=== PATIENT | female | born 1985 | race Caucasian/White ===

== ENCOUNTER 2018-11-05 17:02 | Emergency (ER) | payer MEDICAID ==
[~2018-11-05] VITALS: Ht 162.6 cm; Wt 89.4 kg
[~2018-11-05 17:02] MED LIST: AZIT500 PO; Amoxicillin500 MG PO; CYCL10 PO; Cyclobenzaprine5 MG PO; ERYT.5TO OD; HYDACE5 PO; IBUP600 PO; IBUP800 PO; MEDR150I IM; NAPR500 PO; NITR100CA PO; Naprosyn500 MG PO; Norco 5-325 Ta1 EACH PO; ONDA4ODT MM; ONDA8ODT MM; OXYACE5T PO; PENVK500 PO; PRENATAL VITAM1 EACH PO; PRENATAL VITS; PROACE100 PO; PROCODE120 PO; PROM25 PO; RXCODACET PO
[2018-11-05] MEDS ORDERED: Augmentin 875-1 EACH PO (20:29)
[2018-11-07 05:07] LABS: HIV SCREEN 4TH GENERATION WRFX Non Reactive (Non Reactive)
[2018-11-07 10:07] LABS: HCV ANTIBODY <0.1 (0.0-0.9); HEP B CORE AB, TOT Negative (Negative)
== END 2018-11-05 20:47 | disposition home or self-care (01) ==
LOC: ER 17:02
PROVIDERS: Physician Assistant
DX: S06.0X9A Concussion with loss of consciousness of unspecified duration, initial encounter (principal); S00.83XA Contusion of other part of head, initial encounter; Y04.8XXA Assault by other bodily force, initial encounter
CPT/HCPCS: 36415; 70450; 72125; 84460; 86317; 86704; 86803; 87389; 90471; 90714; 96374; 96375; 99284-25; J0780; J1200; J1885

== ENCOUNTER → 2021-09-29 | Outpatient (CLI) | payer OTHER ==
[~2021-09-29] MED LIST changes: +Augmentin 875-1 EACH PO
[2021-10-02 17:11] LABS: HPV 16 Negative (Negative); HPV 18 Negative (Negative); HPV OTHER HR TYPES Negative (Negative)
== END | disposition home or self-care (01) ==
LOC: LAB SHORT 16:00 → LAB 16:00
PROVIDERS: Family Medicine
DX: Z01.419 Encounter for gynecological examination (general) (routine) without abnormal findings (principal)
CPT/HCPCS: 87624; G0145